=== PATIENT | female | born 1955 | race Hispanic/Latino ===

== ENCOUNTER 2020-01-18 21:13 | Emergency (ER) | payer MEDICARE ==
[2020-01-18 22:40] LABS: BASOPHILS % (AUTO) 0.2 % (0.0-5.0); EOSINOPHILS % (AUTO) 0.7 % (0.0-8.0); HEMATOCRIT 28.6 % (36-48); MEAN CORPUSCULAR HEMOGLOBIN 27.5 pg (27.0-33.0); MEAN CORPUSCULAR HGB CONC 30.4 g/dL (32.0-36.0); MEAN CORPUSCULAR VOLUME 90.5 fL (79-99); MONOCYTES % (AUTO) 5.4 % (3.0-13.0); NEUTROPHILS % (AUTO) 75.3 % (40.0-77.0); PLATELET COUNT (AUTO) 226 K/uL (130-400); RED BLOOD CELL COUNT(AUTO) 3.16 MIL/uL (4.00-5.50); WHITE BLOOD COUNT (AUTO) 9.6 K/uL (4.8-10.8)
[2020-01-18 22:44] LABS: CREATININE 1.5 mg/dL (0.5-1.5)
[2020-01-18 22:49] LABS: ALBUMIN 2.2 g/dL (3.5-5.0); BILIRUBIN,TOTAL 0.2 mg/dL (0.2-1.0); TOTAL PROTEIN, SERUM 8.1 g/dL (6.0-8.3)
== END 2020-01-18 23:55 | disposition home or self-care (01) ==
LOC: EDH 21:13
DX: E11.649 Type 2 diabetes mellitus with hypoglycemia without coma (principal); I10 Essential (primary) hypertension; F03.90 Unspecified dementia, unspecified severity, without behavioral disturbance, psychotic disturbance, mood disturbance, and anxiety; L89.224 Pressure ulcer of left hip, stage 4; L89.214 Pressure ulcer of right hip, stage 4; L89.154 Pressure ulcer of sacral region, stage 4; L89.623 Pressure ulcer of left heel, stage 3; L89.613 Pressure ulcer of right heel, stage 3; Z86.73 Personal history of transient ischemic attack (TIA), and cerebral infarction without residual deficits
CPT/HCPCS: 36415; 80053; 82948; 85025; 93005